=== PATIENT | female | born 1995 | race Caucasian/White ===

== ENCOUNTER 2016-05-24 10:56 | Day surgery (SDC) | payer MEDICAID ==
[~2016-05-24 10:56] MED LIST: ADDERALL 15 MG15 M1 PO; CLONAZEPAM0.5 M2 PO; COLACE100 MG PO; KEFLEX500 M4 PO; MOTRIN600 MG PO; NORCO 5/325 TAB1 TAB PO; PERCOCET 5-3251 EACH PO; PRENATAL1 EACH PO; VYVANSE30 M1 PO
== END 2016-05-24 15:40 ==
LOC: SHSC 10:56
PROC: 10D17ZZ Extraction of Products of Conception, Retained, Via Natural or Artificial Opening (ICD-10-PCS; principal; 2016-05-24)
DX: O02.1 Missed abortion (principal); F41.9 Anxiety disorder, unspecified; F32.9 Major depressive disorder, single episode, unspecified; Z87.891 Personal history of nicotine dependence
CPT/HCPCS: J2210